=== PATIENT | male | born 1990 | race African-American/Black ===

== ENCOUNTER 2022-12-16 16:19 | Emergency (ER) | payer MEDICARE, MEDICAID ==
[~2022-12-16] VITALS: Ht 190.5 cm; Wt 108.7 kg
[2022-12-16 17:09] VITALS: BP 128/74
[2022-12-16] MEDS ORDERED: PENI500T2 PO (17:45)
[2022-12-16] MEDS ORDERED: cefTRIAXone SOD 1,000 MG VL IM ONE (17:45)
[2022-12-16] MEDS ORDERED: methylPREDNISolone SOD SUCC 125 MG/2 ML VL IM ONE (17:45)
== END 2022-12-16 18:14 | disposition home or self-care (01) ==
LOC: ER 16:19
DX: J03.90 Acute tonsillitis, unspecified (principal); Z88.0 Allergy status to penicillin
CPT/HCPCS: 96372; 99284; J0696; J2930